=== PATIENT | female | born 1975 | race Native Hawaiian/Other Pacific Islander ===

== ENCOUNTER 2021-09-02 02:24 | Outpatient (CLI) | payer OTHER | END 2021-09-02 19:35 | disposition home or self-care (01) | LOC: LABW 02:24 | PROVIDERS: ATTEND Nurse Practitioner Family | DX: I10 Essential (primary) hypertension (principal); E66.09 Other obesity due to excess calories | CPT/HCPCS: 82607; 82652; 83036; 84443 ==

== ENCOUNTER 2021-09-09 09:26 | Outpatient (CLI) | payer OTHER | END 2021-09-09 19:00 | disposition home or self-care (01) | LOC: US 09:26 | PROVIDERS: ATTEND Obstetrics & Gynecology | DX: N92.6 Irregular menstruation, unspecified (principal); Z12.31 Encounter for screening mammogram for malignant neoplasm of breast ==

== ENCOUNTER 2022-03-22 18:42 | Outpatient (CLI) | payer OTHER | END 2022-03-22 19:05 | disposition home or self-care (01) | LOC: LABW 18:42 | PROVIDERS: ATTEND Obstetrics & Gynecology | DX: E78.00 Pure hypercholesterolemia, unspecified (principal) | CPT/HCPCS: 36415; 80061 ==

== ENCOUNTER 2022-10-14 19:35 | Outpatient (CLI) | payer OTHER ==
[2022-10-14 21:29] LABS: PLATELET COUNT 252 K/uL (152-353)
[2022-10-14 21:41] LABS: POTASSIUM 3.9 mmol/L (3.6-5.2)
== END 2022-10-14 19:52 | disposition home or self-care (01) ==
LOC: LABW 19:35
PROVIDERS: ATTEND Nurse Practitioner Family
DX: Z00.00 Encounter for general adult medical examination without abnormal findings (principal); I10 Essential (primary) hypertension; R53.83 Other fatigue; Z68.41 Body mass index [BMI] 40.0-44.9, adult; Z79.899 Other long term (current) drug therapy
CPT/HCPCS: 36415; 80053; 80061; 82306; 82607; 82746; 84439; 84443; 84481; 85027